=== PATIENT | male | born 1995 | race American Indian/Alaskan Native ===

== ENCOUNTER 2017-07-04 23:32 | Emergency (ER) | payer SELFPAY ==
[2017-07-04 23:54] VITALS: BP 118/63
--- NOTE | 2017-07-05 00:50 | EDM.PDOC ---
ED HPI GENERAL MEDICAL PROBLEM - General Chief Complaint: Genitourinary Problem Stated Complaint: URINATING BLOOD Time Seen by Provider: 07/05/17 00:49 Source of Information: Reports: Patient History Limitations: Reports: No Limitations - History of Present Illness INITIAL COMMENTS - FREE TEXT/NARRATIVE: c/o blood in urine [employer] with some burning denies prior h/o. - Related Data Allergies Allergy/AdvReac Type Severity Reaction Status Date / Time No Known Allergies Allergy Verified 07/05/17 00:00 Home Meds: Home Meds . [No Known Home Meds] 09/23/14 [History] Past Medical History - Past Health History Medical/Surgical History: Denies Medical/Surgical History Social & Family History - Tobacco Use Smoking Status *Q: Never Smoker Second Hand Smoke Exposure: No - Recreational Drug Use Recreational Drug Use: No ED ROS GENERAL - Review of Systems Review Of Systems: ROS reveals no pertinent complaints other than HPI. ED EXAM, RENAL/ - Physical Exam Exam: See Below Exam Limited By: No Limitations General Appearance: Alert, WD/WN, No Apparent Distress Ears: Hearing Grossly Normal Throat/Mouth: Normal Voice, No Airway Compromise Head: Atraumatic Neck: Non-Tender, Full Range of Motion Respiratory/Chest: No Respiratory Distress Cardiovascular: Regular Rate, Rhythm GI/Abdominal: Soft, Non-Tender Back Exam: No: CVA Tenderness (L), CVA Tenderness (R) Neurological: Alert, Oriented, Normal Cognition, Normal Gait, No Motor/Sensory Deficits Psychiatric: Normal Affect, Normal Mood Skin Exam: Warm, Dry, Normal Color Lymphatic: No Adenopathy Course - Vital Signs Last Recorded V/S: Last Vital Signs Temp 36.1 C 07/04/17 23:51 Pulse 56 L 07/04/17 23:51 Resp 18 07/04/17 23:51 BP 118/63 07/04/17 23:51 Pulse Ox 99 07/04/17 23:51 - Orders/Labs/Meds Labs: Laboratory Tests 07/05/17 Range/Units 00:54 Urine Color Yellow (YELLOW) Urine Appearance Clear (CLEAR) Urine pH 5.5 (5.0-9.0) Ur Specific [place] 1.015 (1.005-1.030) Urine Protein Negative (NEGATIVE) Urine Glucose (UA) Negative (NEGATIVE) Urine Ketones Negative (NEGATIVE) Urine Occult Blood Moderate H (NEGATIVE) Urine Nitrite Negative (NEGATIVE) Urine Bilirubin Negative (NEGATIVE) Urine Urobilinogen 0.2 (0.2-1.0) mg/dL Ur Leukocyte Esterase Negative (NEGATIVE) Urine RBC >100 H /HPF Urine WBC 0-5 (0-5/HPF) /HPF Ur Epithelial Cells Rare /HPF Urine Bacteria Occasional (0-FEW/HPF) /HPF Urine Mucus Occasional /LPF Meds: Medications Discontinued Medications Generic Name Dose Route Start Last Admin Trade Name Freq PRN Reason Stop Dose Admin Phenazopyridine HCl 95 mg 07/05/17 01:28 Urinary Pain Relief PO 07/05/17 01:29 ONETIME ONE Trimethoprim/Sulfamethoxazole 1 tab 07/05/17 01:28 Septra Ds PO 07/05/17 01:29 ONETIME ONE - Re-Assessments/Exams Free Text/Narrative Re-Assessment/Exam: 07/05/17 01:29 results discussed with pt. Departure - Departure Time of Disposition: 01:30 Disposition: Home, Self-Care 01 Condition: Good Clinical Impression: UTI, Urinary tract infectious disease - Discharge Information Instructions: Urinary Tract Infection, Adult, [id number] Forms: ED Department Discharge Additional Instructions: 1) drink lots of liquids 2) follow up at clinic or recheck as needed rx given; bactrim DS bid x 20 pyridium 100mg tid prn x 12
[2017-07-05] MEDS ORDERED: Sulfamethoxazole/Trimethoprim 800-160 MG Tab PO ONE (01:28)
[2017-07-05] MEDS ORDERED: Phenazopyridine 95 MG Tab PO ONE (01:28)
== END 2017-07-05 01:37 | disposition home or self-care (01) ==
LOC: DL.ED 23:32
DX: N39.0 Urinary tract infection, site not specified (principal)
CPT/HCPCS: 81001; 99283; A9270

== ENCOUNTER 2019-06-30 21:13 | Emergency (ER) | payer OTHER ==
[2019-06-30 22:49] VITALS: BP 111/95
== END 2019-07-01 01:00 ==
LOC: DL.ED 21:13
DX: Z53.21 Procedure and treatment not carried out due to patient leaving prior to being seen by health care provider (principal)
CPT/HCPCS: 99283

== ENCOUNTER 2023-10-10 13:07 | Emergency (ER) | payer OTHER ==
[2023-10-10] MEDS ORDERED: Ibuprofen 600 MG Tab PO ONE (13:30)
== END 2023-10-10 14:38 | disposition home or self-care (01) ==
LOC: MERGE 13:07 → DL.ED 13:07
DX: S93.492A Sprain of other ligament of left ankle, initial encounter (principal); W51.XXXA Accidental striking against or bumped into by another person, initial encounter; Y93.67 Activity, basketball
CPT/HCPCS: 73610-LT; 99282; 99283; A9270-GY